=== PATIENT | female | born 1980 | race Native Hawaiian/Other Pacific Islander ===

== ENCOUNTER 2021-08-12 23:56 | Emergency (ER) | payer OTHER ==
[2021-08-13 00:20] VITALS: BP 127/60; TEMP 98.96
== END 2021-08-13 01:30 | disposition left against medical advice (07) ==
LOC: ED 23:56
DX: K02.9 Dental caries, unspecified (principal)
CPT/HCPCS: 99282

== ENCOUNTER 2022-07-15 20:56 | Emergency (ER) | payer OTHER ==
[~2022-07-15] VITALS: Ht 157.5 cm; Wt 47.6 kg
[2022-07-15 21:30] VITALS: BP 112/70; TEMP 99.2
== END 2022-07-15 21:30 | disposition home or self-care (01) ==
LOC: ED 20:56
DX: K08.89 Other specified disorders of teeth and supporting structures (principal); F17.210 Nicotine dependence, cigarettes, uncomplicated
CPT/HCPCS: 99281